=== PATIENT | female | born 1990 | race Caucasian/White ===

== ENCOUNTER 2021-03-20 16:52 | Observation (INO) ==
[2021-03-20] MEDS ORDERED: ONDANSETRON INJ 2 MG/ML 2 ML VIAL IV STA (21:33)
[2021-03-20] MEDS ORDERED: SODIUM CHLORIDE 0.9% 1000ML 2,000 ML IV ONE (21:33)
[2021-03-20 21:48] LABS: Basophils # (auto) 0.04 K/uL (0-0.2); Basophils % (auto) 0.3 %; Eosinophils # (auto) 0.12 K/uL (0-0.5); Eosinophils % (auto) 0.9 %; Hematocrit (blood only) 37.2 % (37-47); Hemoglobin 13.1 g/dL (12.0-16.0); Immature Granulocytes # (auto) 0.06 K/uL (0.00-0.02); Immature Granulocytes % (auto) 0.4 %; Lymphocytes # (auto) 3.28 K/uL (1.2-3.4); Lymphocytes % (auto) 24.3 %; Mean Corpuscular Hemoglobin 30.8 pg (25-34); Mean Corpuscular Hgb Conc 35.2 g/dL (32-36); Mean Corpuscular Volume 87.5 fL (80-100); Mean Platelet Volume 10.7 fL (7.4-10.4); Monocytes % (auto) 5.9 %; Neutrophils # (auto) 9.21 K/uL (1.4-6.5); Neutrophils % (auto) 68.2 %; Platelet Count 242 K/uL (130-400); RDW Coefficient of Variation 12.7 % (11.5-14.5); RDW Standard Deviation 40.2 fL (36.4-46.3); Red Blood Count 4.25 M/uL (4.2-5.4); White Blood Count 13.51 K/uL (4.8-10.8)
--- NOTE | 2021-03-20 21:51 | Emergency Department Note ---
Impression & Plan Nausea & vomiting, Second trimester ED Provider Note INFORMANT: Patient ED PROVIDER(S): Reynold Briggs MD CHIEF COMPLAINT: Vomiting PLAN: Disposition: Admitted Condition: Good Outpatient prescription management: none Referral: None MEDICAL DECISION MAKING: Patient presented because of persistent vomiting despite oral antinausea medication and suppositories. She has been dealing with this for most of her . She has had a documented weight loss. Patient had IV established. Her blood work was unremarkable. She was hydrated with 2 L of normal saline given Zofran. She still had nausea and vomiting with this. She was given IV Phenergan. I did consult with CENTRIFUGAL MACHINE TENDER on-call, Dr. Velázquez. Evaluated the patient in the ER. Due to the persistent nausea and vomiting he admitted her for further management. Triage Nursing notes reviewed and agree them. Vital Signs: reviewed and remarkable for no significant abnormalities Differential diagnosis: Etiologies such as hyperemesis, gastroenteritis, food borne illness, infections, appendicitis, diverticulitis, inflammatory bowel disease, GI bleed, biliary pat hology, as well as others were entertained. Diagnostics interpreted by me: ECG: none Cardiac Monitoring: Cardiac monitoring ordered by me: The patient was placed on continuous cardiac monitoring and observed. It revealed a normal sinus rhythm at 72beats per minute without ectopy or evidence of dysrhythmia. Imaging studies: Deferred HPI: The patient is a 30-year-old G2, P0 female who presents to the Emergency Room with complaints of persistent nausea and vomiting. This started about 12 weeks ago and is persisting. The patient notes losing 4 pounds this week. She is 18 weeks . The patient also notes the following associated symptoms, some mild abdominal cramping at times. No vaginal bleeding or fluid leaking. The patient has used Phenergan suppositories and oral Zofran for relieving factors. Current pain is rated as 0/10. Pt denies LOC, headache, fevers, chills, diaphoresis, visual changes, neck pain, chest pain, breathing dif ficulties, back pain, melena, hematochezia, urinary symptoms, numbness, weakness, lymphadenopathy, rash, or other complaints. ROS: See above HPI for pertinent positives & negatives. A total of 10 systems reviewed and were otherwise negative. PAST MEDICAL HISTORY:See Below , miscarriage PAST SURGICAL HISTORY:See Below, FAMILY HISTORY:See Below SOCIAL HISTORY:See Below, HOME MEDICATIONS:See Below ALLERGIES:See Below VITALS:See Below PHYSICAL EXAMINATION: GENERAL: Awake, alert, mildly uncomfortable-appearing, in no distress HENT: Normocephalic, atraumatic. Oropharynx unremarkable. EYES: Normal conjunctiva. Sclera non-icteric. NECK: Inspection normal. Non-tender. Supple. No nuchal rigidity. FROM. No masses. RESPIRATORY: Clear to auscultation. No wheezes. No rales. Normal respiratory effort. CARDIAC: Normal rate. Normal rhythm. No murmurs. No rubs. Extremities warm and well perfused. Pulses equal. No JVD. GI: Soft, non-distended. No tenderness to palpation. No rebound or guarding. No masses. RECTAL: Deferred. MUSCULOSKELETAL: Atraumatic. Chest examination reveals no tenderness. The back is symmetrical on inspection without obvious abnormality. There is no CVA tenderness to palpation. No joint edema. LOWER EXTREMITIES: Calves are equal size bilaterally and non-tender. No edema. No discoloration. NEURO: Normal sensorium. No sensory or motor deficits noted. SKIN: No rash or jaundice noted. Reynold Briggs MD Past Med/Surg History Medical History (Updated 03/20/21 @ 22:35 by Franko Velázquez MD, FACOG) Anxiety Coccyx disorder coccyx removed History of chicken pox Varicella vaccination Surgical History H/O ovarian cystectomy [place] teeth extracted Family History Family/Other Cervix cancer Denies family history of Ovarian cancer Breast cancer Colorectal cancer Social History (Updated 01/05/21 @ 09:03 by Mary Macias) Smoking Status: Former smoker Second Hand Exposure: No; Hx Alcohol Use: No Hx Substance Use: No Preferred Language: Kyrgyz Communication Ability: Effective Junior Accountant Bookkeeper Required: No Beliefs That Will Affect Care: None marital status: marital status details: matias Chavez [facility] (54) [phone] Current Living Situation: Spouse Current Living Situation Comment: Lives with current occupational status: employed current occupation: [employer] Feels Safe at Home: Yes Assistive Devices: None Allergies Allergies Allergy/AdvReac Type Severity Reaction Status Date / Time No Known Allergies Allergy Verified 03/20/21 21:27 Home Meds Home Medications Medication Instructions Recorded Confirmed sertraline 25 mg tablet (Zoloft) 25 mg PO DAILY 09/05/20 03/20/21 1 tab PO DAILY 03/20/21 03/20/21 Previous Rx's Medication Instructions Recorded metoclopramide HCl 10 mg tablet 10 mg PO Q8 PRN #48 tab 02/11/21 (Reglan) ondansetron HCl 8 mg tablet 8 mg PO TID PRN #30 tab 02/11/21 promethazine 12.5 mg rectal 12.5 mg [place] Q6H PRN #12 ea 03/20/21 suppository Results & Data (ED) Vital Signs Vital Signs - 24 hr 03/20/21 17:06 03/20/21 20:53 Temperature 36.6 C 36.7 C Temperature Source Temporal Artery Scan Oral Pulse Rate 98 H Pulse Rate [Finger] 84 Respiratory Rate 18 18 Respiratory Effort / Characteristics Non-Labored Respiratory Depth Normal Blood Pressure 104/69 Blood Pressure [Left Arm] 110/63 Blood Pressure Mean 80 Blood Pressure Mean [Left Arm] 78 Blood Pressure Position [Left Arm] Lying Pulse Oximetry 97 99 Oxygen Delivery Method Room Air Room Air Sepsis Recent Fever Within 48 Hours No Sepsis New/Unexplained Change in Mental Status No Sepsis Action Taken by Nursing No Action Required Laboratory Data Result diagrams: 03/20/21 21:35 03/20/21 21:35 Lab Results 03/20/21 03/20/21 03/20/21 Range/Units 21:30 21:35 21:35 WBC 13.51 H (4.8-10.8) K/uL RBC 4.25 (4.2-5.4) M/uL Hgb 13.1 (12.0-16.0) g/dL Hct 37.2 (37-47) % MCV 87.5 (80-100) fL MCH 30.8 (25-34) pg MCHC 35.2 (32-36) g/dL RDW Std Deviation 40.2 (36.4-46.3) fL RDW Coeff of Rachell 12.7 (11.5-14.5) % Plt Count 242 (130-400) K/uL MPV 10.7 H (7.4-10.4) fL Immature Gran % (Auto) 0.4 % Neut % (Auto) 68.2 % Lymph % (Auto) 24.3 % [place] % (Auto) 5.9 % Eos % (Auto) 0.9 % Baso % (Auto) 0.3 % Neut # (Auto) 9.21 H (1.4-6.5) K/uL Lymph # (Auto) 3.28 (1.2-3.4) K/uL [place] # (Auto) 0.80 H (0.11-0.59) K/uL Eos # (Auto) 0.12 (0-0.5) K/uL Baso # (Auto) 0.04 (0-0.2) K/uL Immature Gran # (Auto) 0.06 H (0.00-0.02) K/uL Sodium 137 (136-145) mmol/L Potassium 3.4 L (3.5-5.1) mmol/L Chloride 106 (98-107) mmol/L Carbon Dioxide 23 (21-32) mmol/L Anion Gap 8.0 (3-11) BUN 5 L (7-18) mg/dl Creatinine 0.60 (0.6-1.2) mg/dl Est Cr Clr Drug Dosing 168.1 ml/min Est GFR ( Amer) 143.8 ml/min Est GFR (Non-Af Amer) 124.0 ml/min BUN/Creatinine Ratio 8.4 L (10-20) Glucose 80 (70-99) mg/dl Calcium 9.2 (8.5-10.1) mg/dl Total Bilirubin 0.5 (0.2-1) mg/dl AST 31 (15-37) U/L ALT 55 (12-78) U/L Alkaline Phosphatase 126 H (45-117) U/L Total Protein 7.9 (6.4-8.2) gm/dl Albumin 3.3 L (3.4-5.0) gm/dl Globulin 4.6 H (2.5-4.0) gm/dl Albumin/Globulin Ratio 0.7 L (0.9-2) Lipase 63 L (73-393) U/L Urine Color Dark Yellow Urine Appearance Cloudy A (Clear) Urine pH 5.0 (4.5-7.5) Ur Specific [place] 1.024 (1.000-1.030) Urine Protein Trace H (Negative) Urine Glucose (UA) Negative (Negative) Urine Ketones 4+ H (Negative) Urine Blood Negative (Negative) Urine Nitrite Positive A (Negative) Urine Bilirubin 1+ H (Negative) Urine Urobilinogen Negative (Negative) Ur Leukocyte Esterase Negative (Negative) Urine WBC (Auto) 1-5 (0-5) /hpf Urine RBC (Auto) 0-4 (0-4) /hpf U Hyaline Cast (Auto) 0 (0-5) /lpf U Epithel Cells (Auto) >30 H (0-5) /lpf Urine Bacteria (Auto) 2+ H (Negative) Urine Yeast Not Reportable Administered Medications Lactated Ringer's (Lr) 1,000 mls @ 125 mls/hr IV .Q8H EDGARD Stop: 04/20/21 03:15 Last Admin: 03/21/21 03:20 Dose: 125 mls/hr Documented by: [id number] Ondansetron HCl (Ondansetron Inj 2 Mg/Ml 2 Ml Vial) 4 mg IV Q6H PRN PRN Reason: Nausea And Vomiting Stop: 04/20/21 03:15 Last Admin: 03/21/21 03:51 Dose: 4 mg Documented by: [id number] Discontinued Medications Sodium Chloride (Nss 1000ml) 2,000 mls @ 999 mls/hr IV .Q2H1M ONE Stop: 03/20/21 23:33 Last Infusion: 03/21/21 01:01 Dose: 0 mls/hr Documented by: [id number] Admin: 03/20/21 21:45 Dose: 999 mls/hr Documented by: [id number] Promethazine HCl (Phenergan) 25 mg in 51 mls @ 204 mls/hr IV NOW STA Stop: 03/20/21 22:24 Last Infusion: 03/20/21 23:36 Dose: 0 mls/hr Documented by: [id number] Admin: 03/20/21 22:35 Dose: 204 mls/hr Documented by: [id number] Ondansetron HCl (Ondansetron Inj 2 Mg/Ml 2 Ml Vial) 4 mg IV NOW STA Stop: 03/20/21 21:34 Last Admin: 03/20/21 21:45 Dose: 4 mg Documented by: [id number] Discharge Plan Visit Data Chief Complaint: Dehydration Stated Complaint: 18 WEEKS , REFERRED FOR FLUIDS ED Provider: Reynold Briggs Discharge Problem: Nausea & vomiting, Second trimester Patient Disposition: Admitted As Inpatient Discharge Instructions Interventions: ED Discharge Assessment Last Done: 03/21/21 02:51
[2021-03-20] MEDS ORDERED: PROMETHAZINE 25 MG/51 ML BAG IV STA (22:10)
[2021-03-20 22:15] LABS: Albumin Level 3.3 gm/dl (3.4-5.0); BUN Creatinine Ratio 8.4 (10-20); Calcium 9.2 mg/dl (8.5-10.1); Creatinine Clr Calc Pharmacy 168.1 ml/min; Est GFR (African American) 143.8 ml/min; Potassium 3.4 mmol/L (3.5-5.1)
[2021-03-20 22:17] LABS: Appearance Urine Cloudy (Clear); Bacteria Urine Automated 2+ (Negative); Blood Urine Negative (Negative); Color Urine Dark Yellow; Epithelial Cell Urine Auto >30 /lpf (0-5); Glucose Urine UA Negative (Negative); Ketones Urine 4+ (Negative); Leukocyte Esterase Urine Negative (Negative); Nitrite Urine Positive (Negative); Protein Urine Trace (Negative); Specific Gravity Urine 1.024 (1.000-1.030); Urobilinogen Urine Negative (Negative)
[2021-03-20 22:18] LABS: Albumin Globulin Ratio 0.7 (0.9-2); Bilirubin,Total 0.5 mg/dl (0.2-1); Globulin 4.6 gm/dl (2.5-4.0); Total Protein 7.9 gm/dl (6.4-8.2)
[2021-03-20 22:23] LABS: Bilirubin Urine 1+ (Negative)
[2021-03-20 22:32] LABS: Cast Urine Automated 0 /lpf (0-5); RBC Urine Automated 0-4 /hpf (0-4)
--- NOTE | 2021-03-20 22:37 | History & Physical Report ---
Date of Service March 20, 2021 Assessment & Plan (1) Hyperemesis affecting , antepartum: Plan: Fairly significant hyperemesis and well past the usual resolution stage of 12 to 13 weeks I did offer the patient patient options at this stage though I think kory whatley is exhausted them and I have actually recommended inpatient admission. It is the evening on March 20 we will admit her with IV fluids IV Zofran and IV Phenergan in the morning if she is not improved we will make a consult to the look into the possibility of feeding through her PICC line. Patient has lost significant weight however it is difficult to determine how much and an office visit in August she was 215 pounds documented in her chart the patient states that this is incorrect though she was 242 pounds at her visit in October in her office and she was 225 pounds at her first nursing visit and doctor visit in January. She is now 209 pounds she definitely has lost weight I am unsure of exactly how much weight she has lost as her weight seems to fluctuate in the chart however again the patient feels certain that the 215 pounds documented in August is incorrect thus I cannot be absolutely certain of exactly how much weight she is lost. We will hold her diet at this stage and medications will follow up on the labs from the hospital ER and await Covid testing History of Present Illness Chief Complaint: 18 weeks gestational age patient is followed by our office she has had a number of ER visits for nausea and vomiting is finally at the point where she states she no longer can function at home she is vomiting she is unable to keep things down she has tried oral Zofran and she has tried outpatient Phenergan as well she has stopped her she is not having bleeding Primary Care Provider: Johnny Coreas Allergies Allergy/AdvReac Type Severity Reaction Status Date / Time No Known Allergies Allergy Verified 03/20/21 21:27 Home Medications Medication Instructions Recorded Confirmed Type sertraline 25 mg tablet (Zoloft) 25 mg PO DAILY 09/05/20 03/20/21 History metoclopramide HCl 10 mg tablet 10 mg PO Q8 PRN #48 tab 02/11/21 03/20/21 Rx (Reglan) ondansetron HCl 8 mg tablet 8 mg PO TID PRN #30 tab 02/11/21 03/20/21 Rx 1 tab PO DAILY 03/20/21 03/20/21 History promethazine 12.5 mg rectal 12.5 mg [place] Q6H PRN #12 ea 03/20/21 03/20/21 Rx suppository Patient History Medical History (Updated 03/20/21 @ 22:35 by Franko Velázquez MD, FACOG) Anxiety Coccyx disorder coccyx removed History of chicken pox Varicella vaccination Surgical History H/O ovarian cystectomy [place] teeth extracted Family History Family/Other Cervix cancer Denies family history of Ovarian cancer Breast cancer Colorectal cancer Social History (Updated 01/05/21 @ 09:03 by Mary Macias) Smoking Status: Never smoker marital status: Single marital status details: matias Chavez [facility] (54) [phone] Current Living Situation: Significant Other Current Living Situation Comment: lives with carmine, no pets current occupational status: employed current occupation: [employer] Feels Safe at Home: Yes Results & Data ([facility]) Vital Signs (Past 12 Hours) Vital Signs Temp Pulse Pulse Resp BP BP Pulse Ox 03/20/21 20:53 98.1 F 84 18 110/63 99 03/20/21 17:06 97.9 F 98 H 18 104/69 97 Code Status & VTE Plan VTE Prophylaxis Plan VTE Prophylaxis will be ordered: No Coding Level of Care Code 80490 Inpt Consult Level 3 Diagnoses Hyperemesis affecting , antepartum O21.0
[2021-03-21] MEDS ORDERED: ONDANSETRON INJ 2 MG/ML 2 ML VIAL IV PRN (03:16)
[2021-03-21] MEDS ORDERED: PROMETHAZINE HCL 12.5 MG in SODIUM CHLORIDE 0.9% 50 ML IV PRN (03:16)
[2021-03-21] MEDS ORDERED: ACETAMINOPHEN 325 MG TAB PO PRN (03:16)
[2021-03-21] MEDS: LACTATED RINGER'S 1,000 ML IV SCH ×3 (03:20→21:21)
--- NOTE | 2021-03-21 07:22 | Obstetrical Progress Note ---
Date of Service March 21, 2021 Assessment & Plan (1) Hyperemesis affecting , antepartum: Plan: Patient states she is actually somewhat better this morning she was is the Phenergan switch from intravenous to per rectum and we can do this the patient is on IV fluids with having just minimal sips of water and she is on IV Zofran she has not thrown up overnight she is inquiring about a PICC line. At this stage we will discuss with Dr. Greenwood who is coming manager mission to consolidate a plan for her Admission and Anticipated Discharge Date Admission Date: March 20, 2021 Results & Data ([facility]) Vital Signs (Past 12 Hours) Vital Signs Temp Pulse Pulse Resp BP BP Pulse Ox 03/21/21 03:24 97.5 F L 72 16 94/66 L 100 03/21/21 03:10 97.5 F L 72 18 100 03/21/21 02:39 82 18 103/54 L 97 03/20/21 23:33 75 18 110/63 99 03/20/21 20:53 98.1 F 84 18 110/63 99 PG Care Time/CCT Total # of Minutes Spent Total Time Spent with Patient: Total time spent is greater than 50% in coordination of care (as documented) at patient's floor/unit and/or counseling patient: Coding Level of Care Code 37854 Subseq Hosp Care Lvl 1 Diagnoses Hyperemesis affecting , antepartum O21.0
[2021-03-21] MEDS ORDERED: PROMETHAZINE HCL 12.5 MG SUPP PR PRN (08:22)
[2021-03-21 09:58] LABS: Alanine Aminotransferase 42 U/L (12-78); Albumin Level 2.4 gm/dl (3.4-5.0); Aspartate Aminotransferase 24 U/L (15-37); BUN Creatinine Ratio 9.5 (10-20); Blood Urea Nitrogen 4 mg/dl (7-18); Calcium 8.1 mg/dl (8.5-10.1); Carbon Dioxide 20 mmol/L (21-32); Chloride 111 mmol/L (98-107); Creatinine Clr Calc Pharmacy 233.4 ml/min; Est GFR (African American) > 150.0 ml/min; Est GFR (Non-African American) 138.4 ml/min; Glucose 75 mg/dl (70-99); Potassium 3.7 mmol/L (3.5-5.1); Sodium 139 mmol/L (136-145)
[2021-03-21 10:06] LABS: Albumin Globulin Ratio 0.7 (0.9-2); Alkaline Phosphatase 94 U/L (45-117); Bilirubin,Total 0.5 mg/dl (0.2-1); Globulin 3.4 gm/dl (2.5-4.0); Total Protein 5.8 gm/dl (6.4-8.2)
[2021-03-21] MEDS: PROMETHAZINE HCL 12.5 MG SUPP PR SCH ×3 (10:33→21:22)
[2021-03-21] MEDS: FAMOTIDINE 20 MG in SYRINGE 3 ML IV SCH ×2 (10:46→21:22)
[2021-03-21] MEDS: ONDANSETRON INJ 2 MG/ML 2 ML VIAL IV SCH ×2 (12:12→19:13)
--- NOTE | 2021-03-21 12:16 | Obstetrical Progress Note ---
Date of Service March 21, 2021 Assessment & Plan (1) Hyperemesis affecting , antepartum: Plan: CA phenergan well tolerated and tolerated some ice chips but pt interested in trying something more. Will start with toast, continue scheduled meds Admission and Anticipated Discharge Date Admission Date: March 20, 2021 Subjective Resting comfortably. Transitioned to CA phenergan and IV zofran, both scheduled now, as well as pepcid. Repeat CMP today with improved K, cr wnl as well. Tolerated some ice chips after phenergan, pt states made her feel a little queasy but she thinks because she hasn't eaten since yesterday Physical Exam Constitutional: WD/WN, vitals as above Respiratory: normal respiratory effort; no respiratory distress and no labored breathing Results & Data ([facility]) Vital Signs (Past 12 Hours) Vital Signs Temp Pulse Pulse Resp BP BP Pulse Ox 03/21/21 08:52 98.4 F 76 16 97/63 L 03/21/21 03:24 97.5 F L 72 16 94/66 L 100 03/21/21 03:10 97.5 F L 72 18 100 03/21/21 02:39 82 18 103/54 L 97 PG Care Time/CCT Total # of Minutes Spent Total Time Spent with Patient: Total time spent is greater than 50% in coordination of care (as documented) at patient's floor/unit and/or counseling patient: Coding Level of Care Code None Diagnoses Hyperemesis affecting , antepartum O21.0
[2021-03-22] MEDS: ONDANSETRON INJ 2 MG/ML 2 ML VIAL IV SCH ×3 (00:45→12:05)
[2021-03-22] MEDS: PROMETHAZINE HCL 12.5 MG SUPP PR SCH ×2 (05:25→12:04)
[2021-03-22] MEDS: LACTATED RINGER'S 1,000 ML IV SCH (05:28)
--- NOTE | 2021-03-22 08:12 | Obstetrical Progress Note ---
Date of Service March 22, 2021 Assessment & Plan (1) Hyperemesis affecting , antepartum: Plan: 30 y/o at 18 wks admitted for hyperemessis VSS FHT auscultated overnight wnl Hyperemesis - No vomiting for 24 hours, tolerating small amounts of PO intake at a time. Nausea improved with scheduled medications. Will try to advance diet a little more this AM, but if tolerates breakfast, I think ok to d/c home today. Discussed continuing scheduled anti-emetics for now, how to slowly increase diet content and amount. Pt verbalized understanding. Admission and Anticipated Discharge Date Admission Date: March 20, 2021 Subjective Did well overnight, tolerated crackers and mindy atiya without vomiting multiple times yesterday. Nausea improved with scheduled regimen. Denies cramping, VB. Repeat labs showed improvement yesterday Physical Exam Constitutional: WD/WN, vitals as above Respiratory: normal respiratory effort, lungs clear to auscultation Cardiovascular: RRR, no murmur, no edema Results & Data ([facility]) Vital Signs (Past 12 Hours) Vital Signs Temp Pulse Resp BP Pulse Ox 03/22/21 03:50 98.1 F 71 16 100/64 97 03/22/21 00:05 98.2 F 73 16 99/61 L 96 PG Care Time/CCT Total # of Minutes Spent Total Time Spent with Patient: Total time spent is greater than 50% in coordination of care (as documented) at patient's floor/unit and/or counseling patient: Coding Level of Care Code None Diagnoses Hyperemesis affecting , antepartum O21.0
[2021-03-22] MEDS: FAMOTIDINE 20 MG in SYRINGE 3 ML IV SCH (09:44)
--- NOTE | 2021-03-26 07:28 | Discharge Summary ---
Date of Service March 26, 2021 Admission HPI Per Admitting Provider 18 weeks gestational age patient is followed by our office she has had a number of ER visits for nausea and vomiting is finally at the point where she states she no longer can function at home she is vomiting she is unable to keep things down she has tried oral Zofran and she has tried outpatient Phenergan as well she has stopped her she is not having bleeding Admission Exam (Per Admitting) Constitutional Fairly significant hyperemesis and well past the usual resolution stage of 12 to 13 weeks I did offer the patient patient options at this stage though I think she is exhausted them and I have actually recommended inpatient admission. It is the evening on March 20 we will admit her with IV fluids IV Zofran and IV Phenergan in the morning if she is not improved we will make a consult to the look into the possibility of feeding through her PICC line. Patient has lost significant weight however it is difficult to determine how much and an office visit in August she was 215 pounds documented in her chart the patient states that this is incorrect though she was 242 pounds at her visit in October in her office and she was 225 pounds at her first nursing visit and doctor visit in January. She is now 209 pounds she definitely has lost weight I am unsure of exactly how much weight she has lost as her weight seems to fluctuate in the chart however again the patient feels certain that the 215 pounds documented in August is incorrect thus I cannot be absolutely certain of exactly how much weight she is lost. We will hold her diet at this stage and medications will follow up on the labs from the hospital ER and await Covid testing Discharge Data Consultations 03/20/21 22:10 ED Decision to Admit Stat Hospital Course (1) Hyperemesis affecting , antepartum: Transitioned to [place] phenergan and IV zofran, both scheduled now, as well as pepcid. Repeat CMP today with improved K, cr wnl as well. Tolerated some ice chips after phenergan, pt states made her feel a little queasy but she thinks because she hasn't eaten since yesterday. She was able to tolerate more food slowly. No vomiting for 24 hours, tolerating small amounts of PO intake at a time. Nausea improved with scheduled medications. Discussed continuing scheduled anti-emetics for now, how to slowly increase diet content and amount. Pt verbalized understanding. Coding Level of Care Code 17778 OBS Care - Discharge Diagnoses Hyperemesis affecting , antepartum O21.0
== END 2021-03-22 13:48 | disposition home or self-care (01) ==
LOC: ED 16:52 → INTOOBSV 22:32 → 4S2 22:32

== ENCOUNTER 2021-08-27 04:18 | Inpatient (IN) ==
[2021-08-27] MEDS ORDERED: OXYTOCIN 30 UNITS/500 ML BAG IV PRN ×3 (04:42→19:31)
--- NOTE | 2021-08-27 04:49 | History & Physical Report ---
Date of Service August 27, 2021 Assessment & Plan (1) : Plan: 31 y/o G0 at 40 4/7 wga presents in labor VSS Fetus cat 1 Labor - augment PRN GBS neg epidural PRN History of Present Illness Chief Complaint: contractions Primary Care Provider: Johnny Coreas 31 y/o at 40 4/7 wga presents for r/o labor. +FM; denies LOF, VB. Contractions much more uncomfortable over last 3 hrs. PNI: GMI > 35 Lsil pap Past COMPUTER NUMERICAL CONTROL PROGRAMMER Hx: G1 2019 SAB G2 current q28-30d cycles 08/2020 LSIL denies hx STIs Allergies Allergy/AdvReac Type Severity Reaction Status Date / Time No Known Allergies Allergy Verified 08/27/21 04:44 Home Medications Medication Instructions Recorded Confirmed Type polyethylene glycol 3350 17 17 g PO DAILY #238 g 06/30/21 08/26/21 Rx gram/dose oral powder (Miralax) ondansetron HCl 8 mg tablet 8 mg PO TID PRN #30 tab 08/03/21 08/26/21 Rx Patient History Medical History (Updated 08/27/21 @ 04:44 by Antoinette Alvarenga, YONY) Anxiety Coccyx disorder coccyx removed Gallbladder problem removed History of chicken pox Varicella vaccination Surgical History H/O ovarian cystectomy [place] teeth extracted Family History Family/Other Cervix cancer Denies family history of Ovarian cancer Breast cancer Colorectal cancer Social History Smoking Status: Never smoker Second Hand Exposure: No; Hx Alcohol Use: No Hx Substance Use: No Preferred Language: Eritrean Communication Ability: Effective Cop Breaker Required: No Beliefs That Will Affect Care: None marital status: marital status details: matias Chavez [facility] (54) [phone] Current Living Situation: Spouse Current Living Situation Comment: Lives with current occupational status: employed current occupation: [employer] Feels Safe at Home: Yes Assistive Devices: None Physical Exam Genitourinary: OB Exam Monitor Tracing: + external FHT monitor used, + external uterine monitor used (q3-5) and + category I (140/mod/+accel/-decel) 4cm per RN Results & Data ([facility]) Vital Signs (Past 12 Hours) Vital Signs Pulse BP 08/27/21 04:36 85 113/67 Laboratory Results OB Labs: Blood Type O Positive 01/14/21 Antibody Screen NEGATIVE 01/14/21 Hemoglobin 11.3 g/dL (12.0-16.0) L 06/05/21 Hematocrit 33.8 % (37-47) L 06/05/21 Mean Corpuscular Volume 87.5 fL (80-100) 03/20/21 Platelet Count 242 K/uL (130-400) 03/20/21 Rubella IgG Antibody Immune (Immune) 01/14/21 Rapid Plasma Reagin Nonreactive (Nonreactive) 01/14/21 Hepatitis B Surface Antigen Neg (Neg) 01/14/21 HIV (1&2) Ab and P24 Ag, 4th Gener Neg (Neg) 01/14/21 Glucose 1 Hour 50 gm Load 110 mg/dl (70-130) 06/05/21 OB Optional Labs: Chlamydia trachomatis RNA NOT DETECTED (NOT DETECTED) 01/14/21 Neisseria gonorrhoeae RNA NOT DETECTED (NOT DETECTED) 01/14/21 Labs Reviewed: 10/13/20 cf/sma negative cfdna-low risk--mln GBS negative--mln Coding Level of Care Code None Diagnoses Z34.90
--- NOTE | 2021-08-27 04:50 | Anesthesiology Consultation ---
Date of Service August 27, 2021 Assessment & Plan (1) Encounter for pre-operative examination: Chart Review Chart Review: Patient NOT seen in Pre Admission Testing and Acceptable Risk for Labor Epidural Consults Requested none ASA ASA2 Proposed Anesthesia Anesthesia Type: Labor Epidural History Height/Weight Height: 5 ft 8 in Weight: 103 kg Allergies Allergy/AdvReac Type Severity Reaction Status Date / Time No Known Allergies Allergy Verified 08/27/21 04:44 Medications Home Medications Medication Instructions Recorded Confirmed Last Taken polyethylene glycol 3350 17 17 g PO DAILY #238 g 06/30/21 08/27/21 08/24/21 gram/dose oral powder (Miralax) ondansetron HCl 8 mg tablet 8 mg PO TID PRN #30 tab 08/03/21 08/27/21 08/25/21 08:00 Active Medications Generic Name Dose Route Start Last Admin Trade Name Freq PRN Reason Stop Dose Admin Lactated Ringer's 1,000 mls @ 125 mls/hr 08/27/21 04:42 08/27/21 05:04 Lr IV 08/29/21 04:41 999 mls/hr .Q8H PRN Administration L&D Protocol Protocol Past Medical History Medical History Anxiety Coccyx disorder coccyx removed Gallbladder problem removed History of chicken pox Varicella vaccination Exercise / Class Metabolic Activity II 4-5 Yardwork/Stairs/Walk up hill Past Family History Family History Family/Other Cervix cancer MGGM Denies family history of Ovarian cancer Breast cancer Colorectal cancer Past Surgical History Surgical History H/O ovarian cystectomy [place] teeth extracted Past Anesthesia History No Hx of Anesthesia Complications History of PONV No Hx of PONV Social History Smoking Status: Never smoker Hx Alcohol Use: No Hx Substance Use: No substance use type: does not use Review of Systems Patient denies history of abnormal bleeding or bleeding disorder. Patient denies active use of anticoagulants other than low dose aspirin. Negative for chest pain or shortness of breath. Patient denies numbness, tingling or weakness in lower extremities. Physical Exam Vital Signs Last Vital Signs Pulse 85 08/27/21 04:36 BP 113/67 04/21/22 04:36
[2021-08-27] MEDS: LACTATED RINGER'S 1,000 ML IV PRN ×5 (05:04→18:57)
[2021-08-27] MEDS ORDERED: ePHEDrine sulfate 50 MG/ML AMP ONE (05:19)
[2021-08-27] MEDS ORDERED: fentaNYL citrate 100 MCG/2 ML VIAL ONE (05:19)
[2021-08-27] MEDS ORDERED: SODIUM CHLORIDE 0.9% INJ 10 ML VIAL ONE ×2 (05:19→13:07)
[2021-08-27] MEDS ORDERED: BUPIVACAINE 0.25% 30 ML VIAL ONE ×2 (05:19→13:08)
[2021-08-27] MEDS ORDERED: fentaNYL 2MCG/ML ROPIVACAINE 1.25MG/ML 100 ML BAG EPI ONE (05:20)
[2021-08-27 05:38] LABS: Hematocrit (blood only) 33.6 % (37-47); Hemoglobin 11.4 g/dL (12.0-16.0); Mean Corpuscular Hemoglobin 30.2 pg (25-34); Mean Corpuscular Volume 89.1 fL (80-100); Mean Platelet Volume 9.9 fL (7.4-10.4); Platelet Count 270 K/uL (130-400); RDW Coefficient of Variation 13.1 % (11.5-14.5); RDW Standard Deviation 42.2 fL (36.4-46.3); Red Blood Count 3.77 M/uL (4.2-5.4); White Blood Count 18.49 K/uL (4.8-10.8)
[2021-08-27 05:40] LABS: Mean Corpuscular Hgb Conc 33.9 g/dL (32-36)
[2021-08-27] MEDS ORDERED: NALOXONE HCL 0.4 MG/1 ML VIAL/CARP IV PRN (06:12)
[2021-08-27] MEDS ORDERED: diphenhydrAMINE 50 MG/ML VIAL IV PRN (06:12)
[2021-08-27] MEDS ORDERED: NALOXONE HCL 1 MG in SODIUM CHLORIDE 0.9% 1000ML 1,000 ML IV PRN (06:12)
[2021-08-27] MEDS ORDERED: NALBUPHINE HCL INJ 10 MG/ML AMP IV PRN (06:12)
[2021-08-27] MEDS ORDERED: ONDANSETRON INJ 2 MG/ML 2 ML VIAL IV PRN (06:12)
[2021-08-27] MEDS ORDERED: ePHEDrine sulfate 50 MG/ML AMP IV PRN (06:12)
--- NOTE | 2021-08-27 08:19 | Labor Progress Brief Note ---
Date of Service August 27, 2021 Subjective Comfortable w/ epidural Assessment & Plan (1) : Plan: 31 y/o at 40 4/7 wga presents in labor VSS Fetus cat 1 Labor - s/p arom, continue expectant management GBS neg epidural in place Admission and Anticipated Discharge Date Admission Date: August 27, 2021 Physical Exam Genitourinary: Manual OB Exam: + cervical dilation (4-5), + cervical effacement 90%, + station -2 and + amniotic fluid (AROM) OB Exam Monitor Tracing: + external FHT monitor used, + external uterine monitor used and + category I (145/mod/+accel/-decel) Results & Data ([facility]) Vital Signs (Past 12 Hours) Vital Signs Temp Pulse Resp BP Pulse Ox 08/27/21 08:11 71 98 08/27/21 08:09 71 16 91/55 L 08/27/21 08:06 69 97 08/27/21 08:01 76 97 08/27/21 07:56 77 100 08/27/21 07:51 83 100 08/27/21 07:50 77 117/77 08/27/21 07:46 78 100 08/27/21 07:41 81 100 08/27/21 07:36 77 99 08/27/21 07:35 75 98/54 L 08/27/21 07:31 75 99 08/27/21 07:26 76 100 08/27/21 07:21 86 100 08/27/21 07:16 91 H 91 08/27/21 07:11 69 100 08/27/21 07:10 97.9 F 20 08/27/21 07:06 86 99 08/27/21 07:05 82 103/58 L 08/27/21 07:01 105 H 100 08/27/21 06:56 84 99 08/27/21 06:51 86 100 08/27/21 06:50 77 107/57 L 08/27/21 06:46 76 100 08/27/21 06:41 95 H 100 08/27/21 06:36 90 100 08/27/21 06:34 96 H 102/53 L 08/27/21 06:32 90 105/77 08/27/21 06:31 86 100 08/27/21 06:30 100 H 18 119/71 08/27/21 06:28 95 H 110/58 L 08/27/21 06:26 102 H 109/62 100 08/27/21 06:24 101 H 116/58 L 91 08/27/21 06:22 93 H 108/56 L 08/27/21 06:21 117 H 100 08/27/21 06:20 112/61 08/27/21 06:18 105 H 100/55 L 08/27/21 06:16 90 99/57 L 100 08/27/21 06:14 96 H 108/63 08/27/21 06:12 88 109/59 L 08/27/21 06:11 87 100 08/27/21 06:10 86 95/52 L 08/27/21 06:08 86 89/54 L 08/27/21 06:06 88 94/48 L 100 08/27/21 06:04 81 101/55 L 08/27/21 06:02 94 H 104/55 L 08/27/21 06:01 93 H 100 08/27/21 06:00 82 103/53 L 08/27/21 05:56 85 98 08/27/21 05:51 84 100 08/27/21 05:50 85 158/73 H 08/27/21 05:46 89 100 08/27/21 05:41 80 99 08/27/21 05:36 76 99 08/27/21 05:31 76 100 08/27/21 04:45 97.9 F 18 08/27/21 04:36 97.9 F 85 20 113/67 Coding Level of Care Code None Diagnoses Z34.90
[2021-08-27] MEDS ORDERED: NURSING L&D Epidural Breakthrough Pain Update ONE (10:28)
[2021-08-27] MEDS: fentaNYL 2MCG/ML ROPIVACAINE 1.25MG/ML 100 ML BAG EPI PRN ×2 (11:25→15:23)
--- NOTE | 2021-08-27 19:26 | Delivery Summary ---
Vaginal Delivery Summary Date of Service August 27, 2021 Vaginal Delivery Summary Clinical situation the patient was an active labor full fully dilated and then pushed the patient did have somewhat of a tachycardia but no temperature elevation until the last point of her where she had a temperature elevation of 38.2 C. At that stage the baby was starting to appear at the vaginal introitus and I did not think a dose of antibiotics would necessarily be of benefit at this stage as it would not be time The patient's heart rate was tachycardic and there was some D cells I actually advised vacuum assistance the patient agreed we discussed risks including careful hematoma The vacuum was applied however because of pre-existing caput it was difficult to attach even with gentle traction I would get a pull off that is pop-off with minimal effort. We tried several times with a total of 5 pop offs popping off with all but 1 contraction, Idiscussed at this stage that the baby's head was so low that I do not think section was actually even a viable option but did my best with the vacuum to try and help delivery we lowered the baby's head fairly substantially with this but in the end the mother pushed the baby out on her own with the midline episiotomy helping this as well. Mouth and then nares suctioned with the bulb as there was meconium there was no nuchal cord baby was delivered with gentle traction there was no shoulder dystocia and no difficulties with delivery live vigorous male cord clamped and cut cord gases obtained cord blood obtained placenta removed with traction's there was no additional tearing midline episiotomy repaired with 3-0 Vicryl sponge and instrument counts correct estimated blood loss 300 mL.
--- NOTE | 2021-08-27 19:30 | Anesthesia Procedure Note ---
Date of Service August 27, 2021 Anesthesia Post Epidural Note Vital Signs Vital Signs: Temp Pulse Resp BP Pulse Ox 38.2 C H 99 H 20 141/59 H 99 08/27/21 18:15 08/27/21 19:24 08/27/21 18:15 08/27/21 19:24 08/27/21 19:12 Pain Intensity Abdomen: Pain Intensity: 3 Notes Mental Status: alert / awake / arousable and participated in evaluation Nausea / Vomiting: adequately controlled Pain: adequately controlled Airway Patency, RR, SpO2: stable & adequate BP & HR: stable & adequate Hydration State: stable & adequate Neuraxial Anesthesia: was administered and sensory block is resolving Anesthetic Complications: no major complications apparent and Pt Satisfied with anesthetic care Epidural: Removed without complications and With tip intact
[2021-08-27] MEDS ORDERED: BENZOCAINE 20% AER SPR 82.5 GM CAN EXT PRN (19:31)
[2021-08-27] MEDS ORDERED: bisacodyL 10 MG SUPP PR PRN (19:31)
[2021-08-27] MEDS ORDERED: ACETAMINOPHEN 325 MG TAB PO PRN (19:31)
[2021-08-27] MEDS ORDERED: HYDROCORTISONE ACETATE 25 MG SUPP PR PRN (19:31)
[2021-08-27] MEDS ORDERED: GENTAMICIN CONSULT ACTIVE PRN (19:49)
--- NOTE | 2021-08-27 20:01 | Pharmacy Report ---
Pharmacy Abx Dose Short Note - Date of Service August 27, 2021 - Assessment & Plan Assessment 31 year old F receiving Gentamicin and Ampicillin for treatment of post- genitourinary infection * Febrile at 38.2oC. Renal fxn pending for tomorrow. Plan Gentamicin * Patient meets criteria for extended-interval aminoglycoside dosing per the [facility] * Dose: 515 mg (5 mg/kg) IV every 24 hours * Dosage based on actual body weight * No level ordered unless therapy to extend beyond 72 hours Ampicillin * 2000 mg IV every 6 hours * Pharmacy not consulted but dose appropriate for infection Pharmacy will continue to follow and will adjust dose/frequency as necessary. Thank you.
[2021-08-27 20:14] LABS: Base Excess Cord Venous Blood -4.6 mEq/L (-7.7-1.9); Cord Venous Blood HCO3 20 mmol/L (18.4-26.8); Cord Venous Blood PCO2 36 mmHg (30.4-57.2); Cord Venous Blood PO2 30 mmHg (14.1-43.3); Cord Venous Blood pH 7.36 (7.20-7.44)
[2021-08-27 20:15] LABS: Base Excess Cord Arterial Bld -5.5 mEq/L (-9-1.8); CO2 Cord Arterial Blood 54 mmHg (39.1-73.5); HCO3 Cord Arterial Blood 22 mmol/L (19.7-28.5); PO2 Cord Arterial Blood 26 mmHg (4.1-31.7); pH Cord Arterial Blood 7.24 (7.1-7.38)
[2021-08-27 20:17] LABS: Oxygen Sat Cord Arterial Blood < 60.0 % (<60)
[2021-08-27] MEDS: IBUPROFEN 600 MG TAB PO PRN (20:17)
[2021-08-27] MEDS: DOCUSATE SODIUM 100 MG CAP PO SCH (20:17)
[2021-08-27] MEDS: DEXTROSE 5% IV SCH (20:17)
[2021-08-27] MEDS: GENTAMICIN SULFATE IV SCH (20:17)
[2021-08-27 21:12] LABS: Creatinine Clr Calc Pharmacy 144.8 ml/min; Est GFR (African American) 131.2 ml/min; Est GFR (Non-African American) 113.2 ml/min
[2021-08-27] MEDS: AMPICILLIN 2,000 MG in SODIUM CHLOR 0.9% AD-VAN 100 ML IV SCH (21:23)
[2021-08-28] MEDS: AMPICILLIN 2,000 MG in SODIUM CHLOR 0.9% AD-VAN 100 ML IV SCH ×4 (02:24→20:04)
[2021-08-28] MEDS: IBUPROFEN 600 MG TAB PO PRN ×3 (04:51→20:03)
[2021-08-28] MEDS: oxyCODONE/ACETAMINOPHEN 5mg/325mg TAB PO PRN ×3 (06:28→20:02)
[2021-08-28 06:38] LABS: Hemoglobin 9.6 g/dL (12.0-16.0); Mean Corpuscular Hemoglobin 29.7 pg (25-34); Mean Corpuscular Hgb Conc 33.1 g/dL (32-36); Mean Corpuscular Volume 89.8 fL (80-100); Mean Platelet Volume 10.1 fL (7.4-10.4); Platelet Count 239 K/uL (130-400); RDW Coefficient of Variation 13.3 % (11.5-14.5); RDW Standard Deviation 42.9 fL (36.4-46.3); Red Blood Count 3.23 M/uL (4.2-5.4); White Blood Count 20.75 K/uL (4.8-10.8)
[2021-08-28 06:55] LABS: Creatinine Clr Calc Pharmacy 176.7 ml/min; Est GFR (African American) 143.6 ml/min; Est GFR (Non-African American) 123.9 ml/min
[2021-08-28] MEDS: PRENATAL VITAMIN 1 TAB PO SCH (07:33)
[2021-08-28] MEDS: DOCUSATE SODIUM 100 MG CAP PO SCH ×2 (07:33→20:03)
--- NOTE | 2021-08-28 07:37 | Obstetrical Progress Note ---
Date of Service <Asya FigueroaDO - Last Filed: 08/28/21 07:36> August 28, 2021 Assessment & Plan <Asya HenryDO - Last Filed: 08/28/21 07:36> (1) Encounter for care and examination after delivery: 31 yo post op day1 from , doing well. -Continue routine post care. -vital signs reviewed and WNL (Tmax 36.7) -Blood Type O+, GBS, Rubella immune -Encourage ambulation, monitor and control pain with Motrin, tylenol PRN, resume regular diet, monitor lochia -encourage breast feeding -hemoglobin 9.6 Day #:: 1 <Franko Velázquez MD, FACOG - Last Filed: 08/28/21 07:54> (1) Encounter for care and examination after delivery: Subjective <Asya HenryDO - Last Filed: 08/28/21 07:36> Ambulation: ambulating normally Voiding: no voiding problems Passing Gas:: Yes Diet Tolerance:: regular diet Lochia:: Small Feeding Type:: breast feeding Current Pain Level(1-10): 0 Review of Systems Denies fever, chills, sweats Denies shortness of breath, difficulty breathing, chest pain, palpitations, chest pressure. Denies breast pain. Denies dysuria. Denies headache or changes in vision. Physical Exam <Asya Figueroa - Last Filed: 08/28/21 07:36> General: Alert, oriented. No acute distress. Cardiac: Regular rate and rhythm, no murmurs/rubs/gallops. Respiratory: Clear to auscultation bilaterally a/p, no wheezes/rales/rhonchi. No increased work of breathing. Symmetrical chest rise. No respiratory distress. Abdomen: Soft, nontender, nondistended. Bowel sounds present. Uterus: Uterine fundus firm, palpable -2cm under umbilicus. Lower Extremities: No lower extremity edema or swelling. No deep calf pain. Gisela's negative bilaterally.. Results & Data ([facility]) <Asyachapis Figueroa DO - Last Filed: 08/28/21 07:36> Vital Signs (Past 12 Hours) Vital Signs Temp Pulse Pulse Resp BP BP 08/28/21 04:40 36.7 C 64 16 94/61 L 04/22/22 00:00 36.6 C 73 18 100/65 08/27/21 22:00 37.4 C 83 18 123/88 08/27/21 21:25 37.4 C 83 18 123/58 L 08/27/21 21:10 96 H 126/52 L 08/27/21 20:55 86 106/55 L 08/27/21 20:40 83 100/52 L 08/27/21 20:25 77 18 111/52 L 08/27/21 20:10 86 18 116/59 L 08/27/21 19:55 93 H 20 116/57 L 08/27/21 19:40 38.0 C H 88 20 138/71 <Franko Velázquez MD, FACOG - Last Filed: 08/28/21 07:54> Co-Signing Physician Notes Resident Physician Supervision Note: I interviewed and examined the patient. Discussed with [Name of resident] and agree with findings and plan as documented in the note. Any exceptions or clarifications are listed here: [None] Documented By: Franko Velázquez MD, FACOG Resident Activity Tracking <Asya Figueroa DO - Last Filed: 08/28/21 07:36> Resident Involvement: Resident Care Provided Care Provided: Adult Hospital Medicine and OB Delivery
[2021-08-28] MEDS ORDERED: DIPHTHERIA/TETANUS/PERTUSSIS 0.5 ML SYR/VIAL IM ONE (08:00)
[2021-08-28] MEDS ORDERED: bisacodyL 5 MG TABEC PO SCH (20:00)
[2021-08-28] MEDS: GENTAMICIN SULFATE IV SCH (20:42)
[2021-08-28] MEDS: DEXTROSE 5% IV SCH (20:42)
--- NOTE | 2021-08-29 06:30 | Obstetrical Progress Note ---
Date of Service <Asya HenryDO - Last Filed: 08/29/21 07:34> August 29, 2021 Assessment & Plan <Asya HenryDO - Last Filed: 08/29/21 07:34> (1) Encounter for care and examination after delivery: 31 yo post op day2 from , doing well. -Continue routine post care. -vital signs reviewed and WNL (Tmax 37) -Blood Type O+, GBS, Rubella immune -Encourage ambulation, monitor and control pain with Motrin, tylenol PRN, resume regular diet, monitor lochia -encourage breast feeding -hemoglobin 9.6 Day #:: 2 <Marce Mann MD, FACOG - Last Filed: 08/29/21 11:11> (1) Encounter for care and examination after delivery: Subjective <Asya HenryDO - Last Filed: 08/29/21 07:34> Ambulation: ambulating normally Voiding: no voiding problems Passing Gas:: Yes Diet Tolerance:: regular diet Lochia:: Small Feeding Type:: breast feeding Current Pain Level(1-10): 0 Review of Systems Denies fever, chills, sweats Denies shortness of breath, difficulty breathing, chest pain, palpitations, chest pressure. Denies breast pain. Denies dysuria. Denies headache or changes in vision. Physical Exam <Asya HenryDO - Last Filed: 08/29/21 07:34> General: Alert, oriented. No acute distress. Cardiac: Regular rate and rhythm, no murmurs/rubs/gallops. Respiratory: Clear to auscultation bilaterally a/p, no wheezes/rales/rhonchi. No increased work of breathing. Symmetrical chest rise. No respiratory distress. Abdomen: Soft, nontender, nondistended. Bowel sounds present. Uterus: Uterine fundus firm, palpable -2cm under umbilicus. Lower Extremities: No lower extremity edema or swelling. No deep calf pain. Gisela's negative bilaterally.. Results & Data ([facility]) <Asya HenryDO - Last Filed: 08/29/21 07:34> Vital Signs (Past 12 Hours) Vital Signs Temp Pulse Resp BP Pulse Ox 08/29/21 03:50 36.6 C 70 18 100/67 97 08/28/21 23:03 36.8 C 63 16 100/65 98 08/28/21 18:57 36.6 C 78 14 105/65 96 <Marce Mann MD, FACOG - Last Filed: 08/29/21 11:11> Co-Signing Physician Notes Resident Physician Supervision Note: I interviewed and examined the patient. Discussed with Dr. Figueroa and agree with findings and plan as documented in the note. Any exceptions or clarifications are listed here: [None] Documented By: Marce Mann MD, FACOG Resident Activity Tracking <Asya Figueroa DO - Last Filed: 08/29/21 07:34> Resident Involvement: Resident Care Provided Care Provided: Adult Hospital Medicine and OB Delivery
[2021-08-29 06:37] LABS: Hematocrit (blood only) 28.8 % (37-47); Hemoglobin 9.3 g/dL (12.0-16.0)
[2021-08-29 07:08] LABS: Creatinine Clr Calc Pharmacy 182.9 ml/min; Est GFR (African American) 145.2 ml/min; Est GFR (Non-African American) 125.3 ml/min
[2021-08-29] MEDS: DOCUSATE SODIUM 100 MG CAP PO SCH (08:26)
[2021-08-29] MEDS: PRENATAL VITAMIN 1 TAB PO SCH (08:26)
[2021-08-29] MEDS: IBUPROFEN 600 MG TAB PO PRN (08:26)
--- NOTE | 2021-09-01 10:32 | Discharge Summary ---
Date of Service September 01, 2021 Admission HPI Per Admitting Provider 31 y/o at 40 4/7 wga presents for r/o labor. +FM; denies LOF, VB. Contractions much more uncomfortable over last 3 hrs. PNI: GMI > 35 Lsil pap Past [employer] Hx: G1 2019 SAB G2 current q28-30d cycles 08/2020 LSIL denies hx STIs Discharge Data Consultations 08/27/21 04:42 Consult Anesthesiology Stat Hospital Course (1) Encounter for care and examination after delivery: 31 yo post op day2 from [facility] , doing well. -Continue routine post care. -vital signs reviewed and WNL (Tmax 37) -Blood Type O+, GBS, Rubella immune -Encourage ambulation, monitor and control pain with Motrin, tylenol PRN, resume regular diet, monitor lochia -encourage breast feeding -hemoglobin 9.6 Coding Level of Care Code None Diagnoses Encounter for care and examination after delivery Z39.2
== END 2021-08-29 13:05 | disposition home or self-care (01) | DRG 807 ==
LOC: OPB 04:18 → 4S1 04:20 → 4E1 22:22